=== PATIENT | male | born 1955 | race Caucasian/White ===

== ENCOUNTER → 2016-08-25 | Outpatient (CLI) | payer BC, OTHER ==
--- NOTE | 2016-08-25 09:11 | CT ---
CT Scan of the Chest (With Contrast) Clinical Indications: Chronic cough, history of cigarette smoking Technique: Noncontrast [address] imaging was performed from the superior thoracic inlet to the diaphragm. The radiologist manipulated images at the computer workstation. Dose reduction tech niques were utilized. Findings: The lungs are clear without infiltrate, atelectasis or interstitial lung disease. Heart siz e is normal and there is no evidence of a pericardial or pleural effusion. There is triple-vessel cor onary artery disease. There are scattered atherosclerotic calcification in a normal sized aorta. Ther e are no masses or nodules in the lungs, mediastinum, and pleura. There is no bronchial wall thickeni ng, mucous plugging or bronchiectasis. Limited evaluation of the upper abdomen to the adrenal glands demonstrates no significant abnormalities. Incidentally noted are the following: A subtle 13 mm hypodense round area in the lateral upper pole l eft kidney , solitary nonobstructive 3-4mm left renal calculus; 2 small splenunculi ; focal moderate posterior thoracic disk space osteophyte formation at T9-T10. Impression: 1. Triple-vessel coronary artery disease. 2. No lung mass or infiltrate identified. 3. Incompletely evaluated hypodense nodule upper pole left kidney. Recommend ultrasound or postcontra st CT (considering the patient's size and depth of the left kidney) for further evaluation. Results called to MELISSA Fabian in the office of Patrick Farias MD at 9:10 am. General information for patients regarding this examination can be found at [email or web address]. If you have questions or comments about this report, please contact me at [phone] (hospital) or [phone] (cell).
== END ==
LOC: FIMAGING 07:56
PROVIDERS: ATTEND Family Medicine
DX: R05 Cough (principal); N28.9 Disorder of kidney and ureter, unspecified

== ENCOUNTER → 2016-10-16 | Outpatient (CLI) | payer BC ==
[~2016-10-16] MED LIST: IOPAMIDOL (ISOVUE-300) 100 ML BTL IV ONE
== END ==
LOC: FIMAGING 10:02
PROVIDERS: ATTEND Family Medicine
DX: N28.1 Cyst of kidney, acquired (principal)
CPT/HCPCS: Q9967

== ENCOUNTER → 2017-01-21 | Outpatient (CLI) | payer BC | LOC: FIMAGING 07:29 | PROVIDERS: ATTEND Family Medicine | DX: M50.30 Other cervical disc degeneration, unspecified cervical region (principal); M47.892 Other spondylosis, cervical region; M89.38 Hypertrophy of bone, other site; M99.71 Connective tissue and disc stenosis of intervertebral foramina of cervical region ==